=== PATIENT | female | born 1995 | race Hispanic/Latino ===

== ENCOUNTER 2017-09-17 18:17 | Inpatient (IN) | payer MEDICAID, OTHER ==
[2017-09-17 18:59] LABS: APPEARANCE,URINE Clear (CLEAR); BILIRUBIN,URINE Negative (NEGATIVE); COLOR,URINE Yellow (YELLOW); GLUCOSE, URINE (UA) Negative (NEGATIVE); KETONES,URINE Trace mg/dL (NEGATIVE); LEUKOCYTE ESTERASE ,URINE Negative (NEGATIVE); NITRATE,URINE Negative (NEGATIVE); OCCULT BLOOD,URINE Negative (NEGATIVE); PH,URINE 6.5 (5.0-8.0); PROTEIN,URINE Negative (NEGATIVE)
[2017-09-17] MEDS ORDERED: LACTATED RINGERS 1000ML 1,000 ML IV PRN (19:22)
[2017-09-17] MEDS ORDERED: NALOXONE HCL 0.4 MG/1 ML ML IV PRN (19:30)
[2017-09-17] MEDS ORDERED: EPHEDRINE SULFATE 50 MG/ML AMPULE IVP PRN (19:30)
[2017-09-17] MEDS ORDERED: AMPICILLIN 2GM+NS 100ML 100 ML IV SCH (19:30)
[2017-09-17] MEDS ORDERED: LACTATED RINGERS 500 ML 500 ML IV PRN (19:30)
[2017-09-17] MEDS: AMPICILLIN 1GM+NS 50ML 50 ML IV SCH (20:27)
[2017-09-17 20:46] LABS: HEMATOCRIT 30.1 % (36-48); MEAN CORPUSCULAR HEMOGLOBIN 30.5 pg (27.0-33.0); MEAN CORPUSCULAR HGB CONC 35.6 g/dL (32.0-36.0); MEAN CORPUSCULAR VOLUME 85.6 fL (79-99); NUCLEATED RED BLOOD CELLS 0.1 % (0.0-0.19); PLATELET COUNT (AUTO) 179 K/uL (130-400); RED BLOOD CELL COUNT(AUTO) 3.51 MIL/uL (4.00-5.50); RED CELL DISTRIBUTION WIDTH 14.8 % (11.0-15.5); WHITE BLOOD COUNT (AUTO) 7.9 K/uL (4.8-10.8)
[2017-09-18] MEDS: AMPICILLIN 1GM+NS 50ML 50 ML IV SCH ×2 (00:25→04:24)
[2017-09-18] MEDS ORDERED: ROPIVACAINE 0.2%200ML EPIDURAL 200 ML EP SCH (04:30)
[2017-09-18] MEDS ORDERED: OXYTOCIN 10 USP UNITS/ML ONE (06:13)
[2017-09-18] MEDS ORDERED: LACTATED RINGERS 1000ML 2,000 ML IV ONE (06:13)
[2017-09-18 07:01] LABS: RAPID PLASMA REAGIN NONREACTIVE (NONREACTIVE)
[2017-09-18] MEDS ORDERED: OXYTOCIN 10 USP UNITS/ML 20 UNIT in LACTATED RINGERS 1000ML 1,000 ML IV SCH (10:30)
[2017-09-18] MEDS ORDERED: LIDOCAINE HCL 1% 20 ML VIAL ONE (11:25)
[2017-09-18] MEDS ORDERED: DIPH,PERTUSS(ACELL),TET VAC/PF 0.5 ML VIAL IM PRN (12:00)
[2017-09-18] MEDS ORDERED: ACETAMINOPHEN-CODEINE 300/30MG TAB PO PRN (12:00)
[2017-09-18] MEDS ORDERED: LANOLIN 30GM OINTMENT TP PRN (12:00)
[2017-09-18] MEDS ORDERED: WITCH HAZEL 1 PAD TP PRN (12:00)
[2017-09-18 14:00] VITALS: BP 115/70
[2017-09-18] MEDS ORDERED: PREN-154 PO (14:11)
[2017-09-18 15:34] VITALS: BP 123/65
[2017-09-18] MEDS: IBUPROFEN 800 MG TAB PO PRN (16:56)
[2017-09-18 19:22] VITALS: BP 115/58
[2017-09-18] MEDS: DOCUSATE SODIUM 100 MG CAP PO SCH (21:35)
[2017-09-18 23:27] VITALS: BP 115/57
[2017-09-19 02:54] VITALS: BP 112/69
[2017-09-19] MEDS: IBUPROFEN 800 MG TAB PO PRN ×2 (06:14→12:35)
[2017-09-19 07:43] VITALS: BP 107/52
[2017-09-19 08:20] LABS: HEPATITIS Bs ANTIGEN SCREEN P Negative (Negative)
[2017-09-19] MEDS: DOCUSATE SODIUM 100 MG CAP PO SCH (09:09)
[2017-09-19 12:02] VITALS: BP 115/70
== END 2017-09-19 12:50 | disposition home or self-care (01) | DRG 775 ==
LOC: EDH 18:17 → OBSVTOIN 18:18 → LDH 18:18 → WSH 09-18 14:00
PROC: 10E0XZZ Delivery of Products of Conception, External Approach (ICD-10-PCS; principal; 2017-09-18)
PROC: 3E0234Z Introduction of Serum, Toxoid and Vaccine into Muscle, Percutaneous Approach (ICD-10-PCS; 2017-09-18)
PROC: 3E0R3BZ Introduction of Anesthetic Agent into Spinal Canal, Percutaneous Approach (ICD-10-PCS; 2017-09-18)
PROC: 00HU33Z Insertion of Infusion Device into Spinal Canal, Percutaneous Approach (ICD-10-PCS; 2017-09-18)
DX: O80 Encounter for full-term uncomplicated delivery (principal); Z23 Encounter for immunization; Z37.0 Single live birth; Z3A.39 39 weeks gestation of pregnancy
CPT/HCPCS: 36415; 81003; 85027; 86592; 86701; 86850; 86900; 86901; 87340; 87390; 90715; A4314; A4606; J0290; J2590; J7120

== ENCOUNTER 2023-07-03 18:33 | Emergency (ER) | payer MEDICAID, OTHER ==
[~2023-07-03] VITALS: Ht 152.4 cm; Wt 55.8 kg
[~2023-07-03 18:33] MED LIST: PREN-154 PO
[2023-07-03 19:47] VITALS: RESP 20
[2023-07-03 20:29] LABS: APPEARANCE,URINE CLEAR (CLEAR); BILIRUBIN,URINE NEGATIVE (NEGATIVE); COLOR,URINE YELLOW (YELLOW); GLUCOSE, URINE (UA) NEGATIVE (NEGATIVE); KETONES,URINE 60 mg/dL (NEGATIVE); LEUKOCYTE ESTERASE ,URINE 75 Leu/uL (NEGATIVE); NITRATE,URINE NEGATIVE (NEGATIVE); OCCULT BLOOD,URINE NEGATIVE (NEGATIVE); PROTEIN,URINE 30 mg/dL (NEGATIVE)
[2023-07-03 20:30] LABS: ADD UA MICROSCOPIC YES
[2023-07-03 20:49] LABS: BACTERIA,URINE MOD /HPF (None Seen); MUCUS,URINE FEW LPF (None Seen); SQUAMOUS EPITHELIAL CELL,UR MOD /HPF (0-2)
[2023-07-03] MEDS ORDERED: ONDANSETRON ODT 4MG TAB SL ONE (21:30)
[2023-07-03 21:38] LABS: BASOPHILS # (AUTO) 0.02 K/uL (0.00-0.20); BASOPHILS % (AUTO) 0.2 % (0.0-5.0); EOSINOPHILS # (AUTO) 0.03 K/uL (0.00-0.70); EOSINOPHILS % (AUTO) 0.3 % (0.0-8.0); HEMATOCRIT 37.2 % (36-48); IMMATURE GRANULOCYTE ABSOLUTE 0.04 K/uL (0-1); LYMPHOCYTES # (AUTO) 2.1 K/uL (1.0-4.8); LYMPHOCYTES % (AUTO) 23.4 % (21.0-51.0); MEAN CORPUSCULAR HEMOGLOBIN 32.2 pg (27.0-33.0); MEAN CORPUSCULAR HGB CONC 35.2 g/dL (32.0-36.0); MEAN CORPUSCULAR VOLUME 91.4 fL (79-99); MONOCYTES # (AUTO) 0.8 K/uL (0.1-1.0); MONOCYTES % (AUTO) 9.3 % (3.0-13.0); NEUTROPHILS # (AUTO) 5.9 K/uL (1.8-7.7); NEUTROPHILS % (AUTO) 66.4 % (40.0-77.0); PLATELET COUNT (AUTO) 212 K/uL (130-400); RED BLOOD CELL COUNT(AUTO) 4.07 MIL/uL (4.00-5.50); RED CELL DISTRIBUTION WIDTH 11.8 % (11.0-15.5)
[2023-07-03 21:49] LABS: CREATININE 0.5 mg/dL (0.5-1.5); POTASSIUM 3.7 mmol/L (3.5-5.1)
[2023-07-03 22:15] LABS: ALBUMIN 4.3 g/dL (3.5-5.0); BILIRUBIN,TOTAL 0.7 mg/dL (0.2-1.0); TOTAL PROTEIN, SERUM 8.3 g/dL (6.0-8.3)
[2023-07-03] MEDS ORDERED: ONDA4TAB10 PO (22:47)
[2023-07-03] MEDS ORDERED: CEPH500B PO (22:47)
== END 2023-07-03 23:47 | disposition home or self-care (01) ==
LOC: EDH 18:33
DX: O99.891 Other specified diseases and conditions complicating pregnancy (principal); N39.0 Urinary tract infection, site not specified; R10.2 Pelvic and perineal pain; Z79.899 Other long term (current) drug therapy; Z3A.01 Less than 8 weeks gestation of pregnancy
CPT/HCPCS: 36415; 80053; 81001; 81025; 84702; 85025; 87077; 87088; 87186